=== PATIENT | female | born 1995 | race Caucasian/White ===

== ENCOUNTER 2023-11-28 08:39 | Emergency (ER) | payer BC ==
[2023-11-28 08:51] VITALS: BP 122/92; PULSE 99; RESP 18; TEMP 98.6
[2023-11-28 09:57] LABS: HEMATOCRIT 40.1 % (32.4-45.2); HEMOGLOBIN 13.7 G/dL (10.7-15.3); MCHC 34.2 g/dl (32.0-36.0); MEAN CELL VOLUME 90.7 fl (80-96); MEAN PLT VOLUME 7.6 fl (7.5-11.1); PLATELET COUNT 294.7 10^3/uL (134-434); RBC 4.42 10^6/uL (3.60-5.2); RDW 13.2 % (11.6-15.6); WHITE BLOOD COUNT 7.3 10^3/uL (4.0-10.8)
[2023-11-28 10:00] LABS: ALBUMIN 4.4 g/dl (3.4-5.0); BILIRUBIN,TOTAL 0.7 mg/dl (0.2-1); CALCIUM 9.4 mg/dl (8.5-10.1); CREATININE 0.8 mg/dl (0.6-1.3); TOT PROT 6.9 g/dl (6.4-8.2)
== END 2023-11-28 10:27 | disposition home or self-care (01) ==
LOC: FER 08:39
DX: R00.2 Palpitations (principal); R42 Dizziness and giddiness
CPT/HCPCS: 36415; 80053; 84443; 85027; 93005; 99284-25